=== PATIENT | male | born 1960 | race Caucasian/White ===

== ENCOUNTER 2022-04-21 09:25 | Outpatient (RCR) | payer BC, SELFPAY ==
[2022-04-21 10:17] LABS: Creatinine* 0.7 mg/dL (0.5-1.5); Est. Creatinine Clearance* 142.27; Estimated Glomerular Filt Rate 105 ml/min
== END 2022-10-18 23:59 | disposition home or self-care (01) ==
LOC: CCIC 09:25
PROVIDERS: Visit Provider Internal Medicine
DX: C77.5 Secondary and unspecified malignant neoplasm of intrapelvic lymph nodes (principal)
CPT/HCPCS: 36415; 36592; 82565